=== PATIENT | female | born 1965 | race Caucasian/White ===

== ENCOUNTER 2016-06-17 05:38 | Observation (INO) | payer OTHER ==
[2016-06-08 17:45] LABS: HEMATOCRIT 44.2 % (36.0-48.0); HEMOGLOBIN 15.3 g/dL (12.0-16.0)
[2016-06-08 18:09] LABS: A/G RATIO 1.4 (0.7-1.9); ALBUMIN 4.5 G/DL (3.5-5.0); ALKALINE PHOSPHATASE 71 U/L (45-117); BUN (BLOOD UREA NITROGEN) 16 MG/DL (6-23); CALCIUM, SERUM 9.4 MG/DL (8.5-10.4); CHLORIDE, SERUM 104 MMOL/L (96-112); CO2 (CARBON DIOXIDE) 26 MMOL/L (24-34); GFR AFRICAN AMERICAN 98 ML/MIN (>=60); GFR NON AFRICAN AMERICAN 85 ML/MIN (>=60); GLOBULIN 3.3 G/DL (2.5-4.1); GLUCOSE, SERUM 93 MG/DL (60-99); POTASSIUM, SERUM 3.7 MMOL/L (3.5-5.3); SGOT(AST) 13 U/L (5-40); SGPT(ALT) 20 U/L (5-65); SODIUM, SERUM 143 MMOL/L (135-148); TOTAL BILIRUBIN 0.4 MG/DL (0-1.2); TOTAL PROTEIN 7.8 G/DL (6.0-8.5)
--- NOTE | ~2016-06-17 | OP ---
Record Of Operation [facility] [address] [place]. [address] NAME: LEXIE VERDUZCO : 61 STATUS : ADM [place] PAT#: [id number] AGE: 50 ADM/REG DATE : 06/17/16 MR#: [id number] REPORT SERV DATE: 06/17/16 DICTATED BY: ADRIANO VALDEZ DATE: 06/17/16 REPORT STATUS : Draft TRANSCRIBED BY: MODL DATE: 06/17/16 DATE OF PROCEDURE: 06/17/2016 PREOPERATIVE DIAGNOSIS: 3 cm isthmic nodule, atypia of undetermined significance by FNA. POSTOPERATIVE DIAGNOSIS: 3 cm isthmic nodule, atypia of undetermined significance by FNA. PROCEDURE: Total thyroidectomy. SURGEON: Adriano Valdez M.D. ANESTHESIA: General. ESTIMATED BLOOD LOSS: 10 mL. BRIEF HISTORY: The patient presented with obvious palpable isthmic nodule. FNA was as above. After discussion with the patient of the option of wide nodule excision, abel or subtotal thyroidectomy versus total thyroidectomy and the risk presented with each, she elected to proceed with total thyroidectomy. DETAILS OF PROCEDURE: The patient arrived in the operating suite and was placed on the table in supine position. General anesthesia obtained via an endotracheal tube. The patient appropriately positioned. The neck and upper chest were prepped and draped in a sterile manner. A cervical collar incision was performed. Subplatysmal flaps elevated with blunt dissection and cautery. Strap muscles were split in the midline. A plane of dissection created between relatively soft right thyroid lobe with a prominent nodule in the isthmus. The thyroid vein branches were divided with the LigaSure. The superior pole vessels were isolated with care to avoid injury to the external branch superior laryngeal nerve. The recurrent laryngeal nerve was identified as were both the superior and inferior parathyroids. Dissection was maintained anteromedial to all the structures. Dividing small vessels along the posterolateral aspect of the thyroid between clips and when appropriate with the LigaSure, this allowed the right lobe to be rotated anteromedially after the inferior thyroid veins were divided with the LigaSure and then divided from the pretracheal fascia. Attention was then turned to the left, which was mobilized in a similar fashion. Again, laterally the superior parathyroid gland was identified and protected. The inferior gland was not seen. Dissection was maintained very close to the thyroid capsule and well anteromedial to the course of recurrent laryngeal nerve, which was clearly seen. Vessels were divided between silk ties, clips, and the LigaSure. The superior pole vessels were divided with the LigaSure as well. This allowed the left lobe to be rotated anteromedially and divided from the pretracheal fascia with the LigaSure. Specimen was then sent for permanent histology. Hemostasis was excellent. Strap muscles were approximated with 3-0 Vicryl, platysma with 4-0 Vicryl, and skin closure with subcuticular 5-0 Monocryl. Sterile dressing was applied, and the patient awakened, extubated, and taken to PACU. Record Of Operation [facility] [address] [place]. [address] NAME: LEXIE VERDUZCO : 61 STATUS : ADM [place] PAT#: [id number] AGE: 50 ADM/REG DATE : 06/17/16 MR#: [id number] REPORT SERV DATE: 06/17/16 DICTATED BY: ADRIANO VALDEZ DATE: 06/17/16 REPORT STATUS : Draft TRANSCRIBED BY: AMBER DATE: 06/17/16 /AMBER Adriano Valdez M.D. / [id number] CC: Adriano Valdez M.D.
[~2016-06-17 05:38] MED LIST: ADVIL PO; ANADS PO; DSS PO; MAX25 PO; PCET PO; RELA5 PO; VITAMIN B-121000 MC1 SL; ZYRTEC ALLGY10 MG PO
[2016-06-18] MEDS ORDERED: SYN1 PO (12:23)
[2016-06-18] MEDS ORDERED: PCET PO (12:23)
[2016-06-18] MEDS ORDERED: TUMSROLL PO (12:24)
== END 2016-06-18 13:01 | disposition home or self-care (01) ==
LOC: SDC 05:38 → SDC/OF 09:17 → 5SO 11:21
PROVIDERS: Specialist
PROC: 0GTK0ZZ Resection of Thyroid Gland, Open Approach (ICD-10-PCS; principal; 2016-06-17 06:45)
DX: E05.20 Thyrotoxicosis with toxic multinodular goiter without thyrotoxic crisis or storm (principal); I10 Essential (primary) hypertension; Z90.710 Acquired absence of both cervix and uterus; Z90.89 Acquired absence of other organs; Z82.49 Family history of ischemic heart disease and other diseases of the circulatory system; Z88.5 Allergy status to narcotic agent; Z79.1 Long term (current) use of non-steroidal anti-inflammatories (NSAID); Z79.899 Other long term (current) drug therapy
CPT/HCPCS: 80053; 82310; 85014; 85018; 88307; 93005; 96374; A9270-GY; G0378; J0690; J2250; J2270; J2405; J2550; J2710; J3010